=== PATIENT | female | born 1995 | race Caucasian/White ===

== ENCOUNTER 2017-08-11 12:09 | Inpatient (IN) | payer MEDICAID ==
[2017-08-11] MEDS ORDERED: Sodium Chloride 0.9% 10 ML Syringe FLUSH PRN ×2 (12:39→17:10)
[2017-08-11] MEDS ORDERED: Carboprost Tromethamine 250 MCG/1 ML Amp IM PRN (12:39)
[2017-08-11] MEDS ORDERED: Methylergonovine 0.2 MG/1 ML Amp IM PRN (12:39)
[2017-08-11] MEDS ORDERED: Misoprostol 400 MCG (4 X 100 MCG TAB) RECTAL PRN (12:39)
[2017-08-11] MEDS ORDERED: Lactated Ringers 500 ML IV ONE (12:39)
[2017-08-11] MEDS ORDERED: Lidocaine 1% 30 ML SDV INJECT PRN (12:39)
[2017-08-11] MEDS ORDERED: Ondansetron 4 MG/2 ML SDV IV PRN (12:39)
[2017-08-11] MEDS ORDERED: Tranexamic Acid 1,000 MG in Sodium Chloride 0.9% 100 ML IV PRN (12:39)
[2017-08-11] MEDS ORDERED: Oxytocin/Normal Saline 30 UNIT/500 ML BAG IV SCH (14:15)
[2017-08-11] MEDS: Lactated Ringers 1,000 ML IV SCH ×2 (14:37→16:30)
[2017-08-11] MEDS ORDERED: EPINEPHrine 1 MG/ML SDV ONE (15:28)
[2017-08-11] MEDS ORDERED: fentaNYL 100 MCG/2 ML SDV ONE (15:28)
--- NOTE | 2017-08-11 16:07 | PCM.PRNOTE ---
- Free Text/Narrative Note: Requested to provide analgesia to full term patient in severe pain. Upon entering the room, patient is supine in bed complaining of severe abdominal pain and discomfort. Procedure was discussed with patient including adverse outcomes and expectations. Pt consented to analgesia, SAB/IT. Pt placed into a sitting position. Landmarks for SAB/IT were identified and marked. Back was prepped with betadine x3. A sterile, transparent, fenestrated drape was applied. Excess betadine was removed. Using 3 mL of a 1% lidocaine solution, a skin wheel was placed at the L3/L4 interspace. A 24 ga (4 inch) Pencan spinal needle was inserted until positive for CSF. Negative for heme or paresthesias. Injected fentanyl 20 mcg, sufentanil 10 mcg, and 9.75 mg of a 0.75% bupivacaine solution with an epi wash. Pt was placed left lateral position for approximately 20 minutes. There were zero complications or adverse outcomes. Will continue to monitor.
[2017-08-11] MEDS ORDERED: Simethicone 80 MG Tab.Chew PO PRN (17:10)
[2017-08-11] MEDS ORDERED: Zolpidem 5 MG Tab PO PRN (17:10)
[2017-08-11] MEDS ORDERED: Benzocaine/Menthol 20%-0.5% Spray 56 GM Canister TOP PRN (17:10)
[2017-08-11] MEDS ORDERED: Oxytocin 10 Units/1 ML SDV IM PRN (17:10)
[2017-08-11] MEDS: Ibuprofen 800 MG Tab PO PRN (20:05)
[2017-08-11] MEDS: Docusate Sodium 100 MG Cap PO PRN (20:07)
[2017-08-12] MEDS: Ibuprofen 800 MG Tab PO PRN ×3 (05:41→22:11)
[2017-08-12] MEDS: Ferrous Sulfate 325 MG Tab PO SCH (08:53)
[2017-08-12] MEDS: Prenatal Multivitamin with Calcium/Folic Acid/Iron Tab PO SCH (08:53)
[2017-08-12] MEDS: Docusate Sodium 100 MG Cap PO PRN ×2 (08:53→20:02)
--- NOTE | 2017-08-12 10:39 | DEL ---
DATE: 08/11/2017 PREOPERATIVE DIAGNOSES: 1. Intrauterine at 38 and 1/7 weeks by 6 and 1/7 week ultrasound. 2. Premature rupture of membranes. 3. Group B Streptococcus negative. 4. Positive THC on UDS upon admission. 5. 4, para 1-0-2-1. POSTOPERATIVE DIAGNOSES: 1. Intrauterine at 38 and 1/7 weeks by 6 and 1/7 week ultrasound, delivered. 2. Premature rupture of membranes. 3. Group B Streptococcus negative. 4. Positive THC on UDS upon admission. 5. 4, para 1-0-2-1. 6. Nuchal cord x1, reduced bluntly with delivery. 7. KRISTEL presentation with right hand by left cheek. PROCEDURE PERFORMED: NST, Pitocin augmentation, and then subsequent spontaneous vaginal delivery on 08/11/2017. ANESTHESIA/ANALGESIA: The patient did receive an intrathecal in the first stage of labor. ESTIMATED BLOOD LOSS: 200 mL. FINDINGS: Male. scores and weight pending. SUMMARY OF EVENTS: The patient is a 21-year-old, G4, P1-0-2-1, intrauterine at 38 and 1/7 weeks by 6 and 1/7 week ultrasound, who was admitted with premature rupture of membranes, she required Pitocin augmentation, she subsequently continued to progress in terms of her dilation. I was subsequently called to the room as she was feeling an urge to push. I donned sterile gown and gloves. Upon my evaluation, she was found to be complete and started pushing with contractions. On the 2nd contraction and pushing, vertex was delivered in KRISTEL presentation. Nuchal cord x1 was noted and reduced bluntly with delivery. Subsequently, anterior and posterior shoulder delivered with minimal difficulty with right hand by left cheek, rest of the delivered thereafter. Mouth and nares were suctioned. Cord was doubly clamped and cut, and was resuscitated on mother's abdomen. Then, approximately 10 mL of cord blood was obtained for labs. Placenta was then delivered with gentle cord traction and fundal massage within 5 minutes. Perineum, vagina, and perirectal areas were then examined, without any tears or lacerations. Bilateral periurethral abrasions, nonbleeding, non-repaired after discussion with the patient. Mother and are currently stable at the time of dictation. [facility] /[id number]
--- NOTE | 2017-08-12 11:03 | OBOUT ---
DATE: 08/11/2017 DATE AND TIME OF NST: Date: 08/11/2017. Time: 1250 hours to 1310 hours. REASON FOR NST: 1. Intrauterine at 38 and 1/7 weeks by 6 and 1/7 week ultrasound. 2. Premature rupture of membranes. 3. GBS negative. 4. G4, P1-0-2-1. NST INTERPRETATION: During this time period, heart tone baseline is approximately 130 to 135 and there are at least two 15 x 15 beats per minute accelerations, making this strip reactive. It is also noted to be reassuring. Tocometer reveals irritable-type contraction. Blood pressure 151/82, prior to that was 132/82. ASSESSMENT: 1. Nonstress test, reactive and reassuring. 2. Tocometer reveals irritable-type contraction pattern. PLAN: Due to premature rupture of membranes, Pitocin will be started. We will continue to follow clinically and closely. We will follow her blood pressures closely. No signs and symptoms of severe preeclampsia noted at this point in time. The patient understands and agrees with the above treatment plan. For her history and physical, please see Epic notes which will be scanned and updated in the chart with an update director of clinical applications it. [facility] /[id number]
--- NOTE | 2017-08-12 11:09 | PN ---
DATE: 08/12/2017 day #1. SUBJECTIVE: The patient is tolerating p.o., ambulating, urinating, passing flatus. OBJECTIVE: Vital Signs: Last set of vitals of updated and listed in the chart. Temperature 98.5, heart rate 88, blood pressure 119/78, and respiratory rate 16. Lungs: Clear to auscultation bilaterally. Heart: S1, S2. Regular rate and rhythm. Pelvic: Firm uterus around the umbilicus. Extremities: No peripheral edema. No calf pain. LABORATORY DATA: White cell count 14.9, hemoglobin 11, platelets 170. ASSESSMENT AND PLAN: day #1, status post spontaneous vaginal delivery. PLAN: We will continue to follow clinically and closely. Possible discharge tomorrow. Plans were discussed with patient, they understand and agree. [facility] /[id number]
[2017-08-12] MEDS: Acetaminophen 325 MG Tab PO PRN ×2 (12:11→20:02)
[2017-08-13] MEDS: Acetaminophen 325 MG Tab PO PRN (04:53)
[2017-08-13] MEDS: Prenatal Multivitamin with Calcium/Folic Acid/Iron Tab PO SCH (08:06)
[2017-08-13] MEDS: Ibuprofen 800 MG Tab PO PRN (08:06)
[2017-08-13] MEDS: Ferrous Sulfate 325 MG Tab PO SCH (08:06)
[2017-08-13 08:12] VITALS: BP 116/70
[2017-08-13] MEDS ORDERED: fentaNYL 100 MCG/2 ML SDV ITHECAL ONE (10:24)
[2017-08-13] MEDS ORDERED: EPINEPHrine 1 MG/ML SDV ONE (10:24)
--- NOTE | 2017-08-13 11:27 | DISCH ---
DATE OF SERVICE: 08/13/2017 ADMIT DIAGNOSES: 1. Intrauterine 38 and 1/7 weeks by 6 and 1/7 weeks ultrasound. 2. Premature rupture of membranes. 3. Group B streptococcus negative. 4. Positive THC on urine drug screen on 08/11/2017. 5. G4, P1-0-2-1. POSTOPERATIVE DIAGNOSES: 1. Intrauterine 38 and 1/7 weeks by 6 and 1/7 weeks ultrasound, delivered. 2. Premature rupture of membranes. 3. Group B streptococcus negative. 4. Positive THC on urine drug screen on 08/11/2017. 5. G4, P1-0-2-1. 6. KRISTEL right hand by left cheek with delivery. 7. Nuchal cord x1 reduced bluntly at delivery. PROCEDURE PERFORMED: NST, Pitocin augmentation, spontaneous vaginal delivery by Dr. Anthony Luther, on date of admission. HISTORY OF PRESENT ILLNESS: Please see H and P. SUMMARY OF HOSPITAL COURSE: The patient was admitted on the above date with the above diagnoses with premature rupture of membranes. Did require some Pitocin augmentation and subsequently had a spontaneous vaginal delivery yielding a male, scores 8 and 9, weighing 7 pounds 7 ounce (3375 g). day #1, please see progress note. day #2, date of discharge, the patient was tolerating p.o., ambulating, urinating, passing flatus, and requesting discharge. PHYSICAL EXAMINATION: Vital Signs: Last set of vitals updated and listed in the chart. Temperature 99, heart rate 96, blood pressure 116/70, respiratory rate 16. Lungs: Clear to auscultation. Heart: S1 and S2. Regular rate and rhythm. Abdomen: Firm uterus around the umbilicus. Extremities: No peripheral edema. No calf pain. LABORATORY DATA: Labs done on day #1, 08/12/2017, revealed a hemoglobin 11 compared to predelivery hemoglobin 11.9. CONDITION ON ADMISSION COMPARED TO CONDITION ON DISCHARGE: Improved. DISCHARGE INSTRUCTIONS: 1. Diet as tolerated. 2. Activity: No lifting more than 20 pounds, no sit-ups or straining, and pelvic rest for the next 6 weeks with immediate return to fertility were discussed with the patient. 3. Reason to return or go to the emergency room was discussed with the patient in detail to include, but not limited to, temperature greater than 100.4, foul-smelling discharge, red or hot breasts, or increased vaginal bleeding. DISCHARGE MEDICATIONS: 1. [id number] ibuprofen for pain. 2. vitamins x6 weeks. FOLLOWUP: Follow up in 6 weeks visit. I did discuss with the patient in the interim the reason to return to the emergency room in regards to her . She understands and agrees with the above treatment plan, importance of followup and ramifications of not doing so were also discussed. [facility] /[id number]
== END 2017-08-13 10:25 | disposition home or self-care (01) | DRG 775 ==
LOC: DL.OBCHECK 12:09 → DL.OB 12:40 → OBSVTOIN 17:01
PROVIDERS: ADMIT Family Medicine; ATTEND Family Medicine
PROC: 10E0XZZ Delivery of Products of Conception, External Approach (ICD-10-PCS; principal; 2017-08-11)
PROC: 00HU33Z Insertion of Infusion Device into Spinal Canal, Percutaneous Approach (ICD-10-PCS; 2017-08-11)
PROC: 3E0R3BZ Introduction of Anesthetic Agent into Spinal Canal, Percutaneous Approach (ICD-10-PCS; 2017-08-11)
DX: O42.02 Full-term premature rupture of membranes, onset of labor within 24 hours of rupture (principal); O99.324 Drug use complicating childbirth; Z3A.38 38 weeks gestation of pregnancy; Z37.0 Single live birth; O99.334 Smoking (tobacco) complicating childbirth; F12.90 Cannabis use, unspecified, uncomplicated; O69.81X0 Labor and delivery complicated by cord around neck, without compression, not applicable or unspecified
CPT/HCPCS: 01967; 36415; 59409; 80305; 85027; A9270-GY; J0171; J2405; J2590; J3010; J7120

== ENCOUNTER 2019-08-26 02:58 | Emergency (ER) | payer SELFPAY ==
[2019-08-26] MEDS ORDERED: Ondansetron 4 MG Tab.DIS PO ONE (02:59)
[2019-08-26 03:08] VITALS: BP 115/78; PULSE 104
[2019-08-26] MEDS ORDERED: Sodium Chloride 0.9% 1,000 ML IV ONE ×2 (03:13→03:45)
[2019-08-26] MEDS ORDERED: HYDROmorphone 1 MG/ML Syringe IVPUSH ONE (03:22)
[2019-08-26] MEDS ORDERED: Ondansetron 4 MG/2 ML SDV IVPUSH ONE (03:22)
--- NOTE | 2019-08-26 03:23 | EDM.PDOC ---
"ED HPI GENERAL MEDICAL PROBLEM - General Chief Complaint: Abdominal Pain Stated Complaint: BAD STOMACH PAIN Time Seen by Provider: 08/26/19 03:22 Source of Information: Reports: Patient, RN Notes Reviewed History Limitations: Reports: No Limitations - History of Present Illness INITIAL COMMENTS - FREE TEXT/NARRATIVE: ED with c/o severe stomach ache since yesterday, worse tonight, nauseated from pain. Vomiting tonight. Decreased oral intake, Not voiding much today, No burning with urination, some right back pain. LMP current No known fever or chills. 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 Took SSRI [id number]. HX of substance abuse- [facility] [place] 2009 Social & Family History - Family History Family Medical History: Noncontributory - Tobacco Use Smoking Status *Q: Current Every Day Smoker Years of Tobacco use: 10 Packs/Tins Daily: 0.5 - Caffeine Use Caffeine Use: Reports: None - Recreational Drug Use Recreational Drug Use: Yes Recreational Drug Type: Reports: Marijuana/Hashish ED ROS GENERAL - Review of Systems Review Of Systems: Comprehensive ROS is negative, except as noted in HPI. ED EXAM, GI/ABD - Physical Exam Exam: See Below Exam Limited By: No Limitations General Appearance: Alert, Moderate Distress Eyes: Bilateral: EOMI Ears: Normal External Exam Nose: Normal Inspection Throat/Mouth: Other (dry membranes) Head: Atraumatic, Normocephalic Neck: Normal Inspection Respiratory/Chest: No Respiratory Distress, Lungs Clear, Normal Breath Sounds Cardiovascular: Normal Peripheral Pulses, Regular Rate, Rhythm, Tachycardia GI/Abdominal Exam: Soft, Tender (generalized greater RLQ), Abnormal Bowel Sounds (hyperactive). No: Distended, Guarding Back Exam: CVA Tenderness (R) Neurological: Alert, Oriented, Normal Cognition Skin Exam: Warm, Dry, Intact, Pallor Course - Vital Signs Last Recorded V/S: Last Vital Signs Temp 97.3 F 08/26/19 03:03 Pulse 104 H 08/26/19 03:03 Resp 16 08/26/19 03:03 BP 115/78 08/26/19 03:03 Pulse Ox 100 08/26/19 03:03 - Orders/Labs/Meds Orders: Active Orders 24 hr Category Date Time Status Abdomen Pelvis w Cont [CT] Urgent Exams 08/26/19 03:42 Ordered UA RFX KASSY AND CULT IF INDIC [URIN] Urgent Lab 08/26/19 03:05 Ordered Sodium Chloride 0.9% [Normal Saline] 1,000 ml Med 08/26/19 03:13 Active IV .BOLUS Sodium Chloride 0.9% [Normal Saline] 1,000 ml Med 08/26/19 03:45 Ordered IV .BOLUS Medication Orders Sodium Chloride (Normal Saline) 1,000 mls @ 999 mls/hr IV .BOLUS ONE Stop: 08/26/19 04:13 Last Admin: 08/26/19 03:14 Dose: 999 mls/hr Sodium Chloride (Normal Saline) 1,000 mls @ 999 mls/hr IV .BOLUS ONE Stop: 08/26/19 04:45 Labs: Laboratory Tests 08/26/19 08/26/19 08/26/19 Range/Units 03:09 03:09 03:09 WBC 13.7 H (5.0-10.0) 10^3/uL RBC 5.63 H (4.2-5.4) 10^6/uL Hgb 16.7 H D (12.0-16.0) g/dL Hct 50.5 H (37.0-47.0) % MCV 89.7 D (80-100) fL MCH 29.7 (27.0-34.0) pg MCHC 33.1 (33.0-35.0) g/dL Plt Count 271 D (150-450) 10^3/uL Neut % (Auto) 84.6 H (42.2-75.2) % Lymph % (Auto) 8.7 L (20.5-50.1) % [place] % (Auto) 4.7 (2-8) % Eos % (Auto) 1.9 (1.0-3.0) % Baso % (Auto) 0.1 (0.0-1.0) % Sodium 137 (135-145) mmol/L Potassium 3.9 (3.6-5.0) mmol/L Chloride 100 L (101-111) mmol/L Carbon Dioxide 27.0 (21.0-31.0) mmol/L Anion Gap 13.9 BUN 12 (7-18) mg/dL Creatinine 0.5 L (0.6-1.3) mg/dL Est Cr Clr Drug Dosing 137.22 mL/min Estimated GFR (MDRD) > 60 BUN/Creatinine Ratio 24.00 Glucose 115 H (74-105) mg/dL Lactic Acid 1.6 (0.5-2.0) mmol/L Calcium 9.5 (8.4-10.2) mg/dl Total Bilirubin 0.5 (0.2-1.0) mg/dL AST 37 (10-42) IU/L ALT 57 (10-60) IU/L Alkaline Phosphatase 78 (42-121) IU/L Total Protein 7.7 (6.7-8.2) g/dl Albumin 4.5 (3.2-5.5) g/dl Globulin 3.2 Albumin/Globulin Ratio 1.41 HCG, Qual Negative Meds: Medications Generic Name Dose Route Start Last Admin Trade Name Freq PRN Reason Stop Dose Admin Sodium Chloride 1,000 mls @ 999 mls/hr 08/26/19 03:13 08/26/19 03:14 Normal Saline IV 08/26/19 04:13 999 mls/hr .BOLUS ONE Administration Sodium Chloride 1,000 mls @ 999 mls/hr 08/26/19 03:45 Normal Saline IV 08/26/19 04:45 .BOLUS ONE Discontinued Medications Generic Name Dose Route Start Last Admin Trade Name Freq PRN Reason Stop Dose Admin Hydromorphone HCl 1 mg 08/26/19 03:22 08/26/19 03:30 Dilaudid IVPUSH 08/26/19 03:23 1 mg ONETIME ONE Administration Iopamidol 100 ml 08/26/19 03:42 Isovue-300 (61%) IVPUSH 08/26/19 03:43 ONETIME ONE Ondansetron HCl 4 mg 08/26/19 03:22 08/26/19 03:29 Zofran IVPUSH 08/26/19 03:23 4 mg ONETIME ONE Administration - Radiology Interpretation Free Text/Narrative:: [facility] [place] [facility] Final Radiology Report Call: [phone] assistance Online chat: [email or web address] Name: JEN PANDEY Age: 23Years F Date: 08/26/2019 SSN: -- : [id number] Study: CT ABDOMEN/PELVIS W Requesting Physician: DAMRAIS GONZALEZ Images: [id number] Addl Studies: Provided Clinical History: Contrast: With Contrast Medium: Isovue Contrast Amount: 100 mL Contrast Method: LAC Page 1 of 2 PROCEDURE INFORMATION: Exam: CT Abdomen And Pelvis With Contrast Exam date and time: 08/26/2019 4:05 AM Age: 23 years old Clinical indication: Abdominal pain; Patient HX: Abd pain, vomiting, wbc 14,000 TECHNIQUE: Imaging protocol: Computed tomography of the abdomen and pelvis with intravenous contrast. Radiation optimization: All CT scans at this facility use at least one of these dose optimization techniques: automated exposure control; mA and/or kV adjustment per patient size (includes targeted exams where dose is matched to clinical indication); or iterative reconstruction. Contrast material: ISOVUE; Contrast volume: 100 ml; Contrast route: LAC; COMPARISON: No relevant prior studies available. FINDINGS: Liver: Normal. No mass. Gallbladder and bile ducts: Normal. No calcified stones. No ductal dilation. Pancreas: Normal. No ductal dilation. Spleen: Normal. No splenomegaly. Adrenals: Normal. No mass. Kidneys and ureters: Normal. No hydronephrosis. Stomach and bowel: Nondilated fluid-filled small bowel loops. Liquid stool within the colon and rectum. Appendix: Appendix is visualized and is normal. Intraperitoneal space: Unremarkable. No free air. No significant fluid collection. Vasculature: Unremarkable. No abdominal aortic aneurysm. Lymph nodes: Unremarkable. No enlarged lymph nodes. JEN PANDEY | Final Radiology Report CONFIDENTIALITY STATEMENT This report is intended only for use by the referring physician, and only in accordance with law. If you received this in error, call [phone]. Page 2 of 2 Bladder: Unremarkable as visualized. Reproductive: Unremarkable as visualized. Bones/joints: Unremarkable. No acute fracture. Soft tissues: Unremarkable. IMPRESSION: 1. Nondilated fluid-filled small bowel loops. Liquid stool within the colon and rectum. Findings can suggest gastroenteritis/diarrheal disease. 2. No CT findings of acute appendicitis. Thank you for allowing us to participate in the care of your patient. Departure - Departure Time of Disposition: 05:06 Disposition: Home, Self-Care 01 Condition: Good Clinical Impression: Gastroenteritis Abdominal pain Qualifiers: Abdominal location: generalized Qualified Code(s): R10.84 - Generalized abdominal pain - Discharge Information *PRESCRIPTION DRUG MONITORING PROGRAM REVIEWED*: No *COPY OF PRESCRIPTION DRUG MONITORING REPORT IN PATIENT ROSY: No Instructions: Abdominal Pain, Adult, [id number] Forms: ED Department Discharge Additional Instructions: light diet start with few sips liquid, gradual advance as tolerated avoid spicy food, caffeine, until symptoms resolve tylenol every 4 hours as needed follow up if symptoms worsen, fevers, unable to tolerate fluids zofran 4mg ODT one every 4 hours as needed #2 Sepsis Event Note - Evaluation Sepsis Screening Result: No Definite Risk - Focused Exam Vital Signs: Vital Signs Temp Pulse Resp BP Pulse Ox 08/26/19 03:03 97.3 F 104 H 16 115/78 100 Date Exam was Performed: 08/26/19 Time Exam was Performed: 03:58 - My Orders Last 24 Hours: My Active Orders 08/26/19 03:05 UA RFX KASSY AND CULT IF INDIC [URIN] Urgent 08/26/19 03:13 Sodium Chloride 0.9% [Normal Saline] 1,000 ml IV .BOLUS 08/26/19 03:42 Abdomen Pelvis w Cont [CT] Urgent 08/26/19 03:45 Sodium Chloride 0.9% [Normal Saline] 1,000 ml IV .BOLUS - Assessment/Plan Last 24 Hours: My Active Orders 08/26/19 03:05 UA RFX KASSY AND CULT IF INDIC [URIN] Urgent 08/26/19 03:13 Sodium Chloride 0.9% [Normal Saline] 1,000 ml IV .BOLUS 08/26/19 03:42 Abdomen Pelvis w Cont [CT] Urgent 08/26/19 03:45 Sodium Chloride 0.9% [Normal Saline] 1,000 ml IV .BOLUS"
[2019-08-26 03:35] LABS: ANION GAP 13.9; CHLORIDE,CL 100 mmol/L (101-111); SODIUM,NA 137 mmol/L (135-145)
[2019-08-26] MEDS ORDERED: Iopamidol 612 MG/ML 100 ML Bottle IVPUSH ONE (03:42)
[2019-08-26] MEDS ORDERED: Famotidine 20 MG/2 ML SDV IVPUSH ONE (05:03)
[2019-08-26] MEDS ORDERED: Ondansetron 4 MG Tab.DIS ONE (05:05)
== END 2019-08-26 05:16 | disposition home or self-care (01) ==
LOC: DL.ED 02:58
DX: K52.9 Noninfective gastroenteritis and colitis, unspecified (principal); F17.210 Nicotine dependence, cigarettes, uncomplicated
CPT/HCPCS: 36415; 74177; 80053; 80305; 81001; 83605; 84703; 85025; 96361; 96374; 96375; 99284; A9270; J1170; J2405; J3490; J7030; Q9967

== ENCOUNTER 2020-08-11 03:06 | Emergency (ER) | payer MEDICAID ==
[2020-08-11 03:43] LABS: ANION GAP 10.6 mEq/L (7-13); CHLORIDE,CL 103 mmol/L (98-107); SODIUM,NA 141 mmol/L (136-145)
--- NOTE | 2020-08-11 03:46 | EDM.PDOC ---
ED HPI GENERAL MEDICAL PROBLEM - General Chief Complaint: Gastrointestinal Problem Stated Complaint: stomache pain/ulcers Time Seen by Provider: 08/11/20 03:20 Source of Information: Reports: Patient History Limitations: Reports: No Limitations - History of Present Illness INITIAL COMMENTS - FREE TEXT/NARRATIVE: ED with c/o mid abdominal pain since Friday aniceto. Nausea no vomiting. Burping acidtype liquid. Normal BM's, right flank pain intermittent burining with urination. No fever or chills. LMP 3 weeks ago. Denied drug or alchol use. Abdomen Pain Score (Numeric/FACES): 9 - Related Data Allergies Allergy/AdvReac Type Severity Reaction Status Date / Time No Known Allergies Allergy Verified 08/11/20 03:11 Home Meds: Home Meds . 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 Took SSRI [id number]. HX of substance abuse- [facility] 2009 - Past Surgical History HEENT Surgical History: Reports: Oral Surgery Social & Family History - Family History Family Medical History: No Pertinent Family History - Tobacco Use Tobacco Use Status *Q: Current Every Day Tobacco User Years of Tobacco use: 10 Packs/Tins Daily: 0.3 Used Tobacco, but Quit: No Second Hand Smoke Exposure: Yes - Caffeine Use Caffeine Use: Reports: None - Recreational Drug Use Recreational Drug Use: Yes Drug Use in Last 12 Months: Yes Recreational Drug Type: Reports: Marijuana/Hashish Recreational Drug Use Frequency: Daily ED ROS GENERAL - Review of Systems Review Of Systems: Comprehensive ROS is negative, except as noted in HPI. ED EXAM, GI/ABD - Physical Exam Exam: See Below Exam Limited By: No Limitations General Appearance: Alert, Moderate Distress Eyes: Bilateral: EOMI Ears: Normal External Exam Nose: Normal Inspection Throat/Mouth: Normal Inspection Head: Atraumatic, Normocephalic Neck: Normal Inspection Respiratory/Chest: No Respiratory Distress, Lungs Clear Cardiovascular: Normal Peripheral Pulses, Regular Rate, Rhythm GI/Abdominal Exam: Normal Bowel Sounds, Tender (left mid to lower abdomen) Back Exam: Normal Inspection Extremities: Normal Inspection, Normal Range of Motion, No Pedal Edema Neurological: Alert, Oriented Psychiatric: Flat Affect Course - Vital Signs Last Recorded V/S: Last Vital Signs Temp 98.3 F 08/11/20 05:05 Pulse 97 08/11/20 05:05 Resp 16 08/11/20 05:05 BP 97/61 08/11/20 05:05 Pulse Ox 100 08/11/20 05:05 - Orders/Labs/Meds Labs: Laboratory Tests 08/11/20 08/11/20 08/11/20 Range/Units 03:15 03:15 03:15 WBC 8.2 (5.0-10.0) 10^3/uL RBC 4.97 (4.2-5.4) 10^6/uL Hgb 14.4 D (12.0-16.0) g/dL Hct 45.1 (37.0-47.0) % MCV 90.7 (80-100) fL MCH 29.0 (27.0-34.0) pg MCHC 31.9 L (33.0-35.0) g/dL Plt Count 298 (150-450) 10^3/uL Neut % (Auto) 41.7 L (42.2-75.2) % Lymph % (Auto) 42.2 (20.5-50.1) % [place] % (Auto) 9.7 H (2-8) % Eos % (Auto) 6.3 H (1.0-3.0) % Baso % (Auto) 0.1 (0.0-1.0) % Sodium 141 (136-145) mmol/L Potassium 3.6 (3.5-5.1) mmol/L Chloride 103 (98-107) mmol/L Carbon Dioxide 31 (21-32) mmol/L Anion Gap 10.6 (7-13) mEq/L BUN 10 (7-18) mg/dL Creatinine 0.45 L (0.55-1.02) mg/dL Est Cr Clr Drug Dosing 151.15 mL/min Estimated GFR (MDRD) > 60 BUN/Creatinine Ratio 22.2 (No establ ref range) Glucose 89 (74-99) mg/dL Calcium 8.7 (8.5-10.1) mg/dL Total Bilirubin 0.3 (0.2-1.0) mg/dL AST 15 (15-37) U/L ALT 24 (14-59) U/L Alkaline Phosphatase 66 (46-116) U/L Total Protein 7.4 (6.4-8.2) g/dL Albumin 3.9 (3.4-5.0) g/dL Globulin 3.5 Albumin/Globulin Ratio 1.1 Amylase 42 (25-115) U/L HCG, Qual Negative Urine Color (YELLOW) Urine Appearance (CLEAR) Urine pH (5.0-9.0) Ur Specific [place] (1.005-1.030) Urine Protein (NEGATIVE) Urine Glucose (UA) (NEGATIVE) Urine Ketones (NEGATIVE) Urine Occult Blood (NEGATIVE) Urine Nitrite (NEGATIVE) Urine Bilirubin (NEGATIVE) Urine Urobilinogen (0.2-1.0) mg/dL Ur Leukocyte Esterase (NEGATIVE) Urine RBC /HPF Urine WBC (0-5/HPF) /HPF Ur Epithelial Cells (NOT SEEN) /HPF Amorphous Sediment (NOT SEEN) /HPF Urine Bacteria (0-FEW/HPF) /HPF Urine Opiates Screen (NEGATIVE) Ur Oxycodone Screen (NEGATIVE) Urine Methadone Screen (NEGATIVE) Ur Barbiturates Screen (NEGATIVE) U Tricyclic Antidepress (NEGATIVE) Ur Phencyclidine Scrn (NEGATIVE) Ur Amphetamine Screen (NEGATIVE) U Methamphetamines Scrn (NEGATIVE) Urine MDMA Screen (NEGATIVE) U Benzodiazepines Scrn (NEGATIVE) Urine Cocaine Screen (NEGATIVE) U Marijuana (THC) Screen (NEGATIVE) Ethyl Alcohol < 3 (0) mg/dL 08/11/20 08/11/20 Range/Units 03:45 03:45 WBC (5.0-10.0) 10^3/uL RBC (4.2-5.4) 10^6/uL Hgb (12.0-16.0) g/dL Hct (37.0-47.0) % MCV (80-100) fL MCH (27.0-34.0) pg MCHC (33.0-35.0) g/dL Plt Count (150-450) 10^3/uL Neut % (Auto) (42.2-75.2) % Lymph % (Auto) (20.5-50.1) % [place] % (Auto) (2-8) % Eos % (Auto) (1.0-3.0) % Baso % (Auto) (0.0-1.0) % Sodium (136-145) mmol/L Potassium (3.5-5.1) mmol/L Chloride (98-107) mmol/L Carbon Dioxide (21-32) mmol/L Anion Gap (7-13) mEq/L BUN (7-18) mg/dL Creatinine (0.55-1.02) mg/dL Est Cr Clr Drug Dosing mL/min Estimated GFR (MDRD) BUN/Creatinine Ratio (No establ ref range) Glucose (74-99) mg/dL Calcium (8.5-10.1) mg/dL Total Bilirubin (0.2-1.0) mg/dL AST (15-37) U/L ALT (14-59) U/L Alkaline Phosphatase (46-116) U/L Total Protein (6.4-8.2) g/dL Albumin (3.4-5.0) g/dL Globulin Albumin/Globulin Ratio Amylase (25-115) U/L HCG, Qual Urine Color Yellow (YELLOW) Urine Appearance Cloudy (CLEAR) Urine pH 8.5 (5.0-9.0) Ur Specific [place] 1.020 (1.005-1.030) Urine Protein 30 H (NEGATIVE) Urine Glucose (UA) Negative (NEGATIVE) Urine Ketones Negative (NEGATIVE) Urine Occult Blood Large H (NEGATIVE) Urine Nitrite Negative (NEGATIVE) Urine Bilirubin Negative (NEGATIVE) Urine Urobilinogen 0.2 (0.2-1.0) mg/dL Ur Leukocyte Esterase Negative (NEGATIVE) Urine RBC 5-10 H /HPF Urine WBC 0-5 (0-5/HPF) /HPF Ur Epithelial Cells Moderate H (NOT SEEN) /HPF Amorphous Sediment Many H (NOT SEEN) /HPF Urine Bacteria Moderate H (0-FEW/HPF) /HPF Urine Opiates Screen Negative (NEGATIVE) Ur Oxycodone Screen Negative (NEGATIVE) Urine Methadone Screen Negative (NEGATIVE) Ur Barbiturates Screen Negative (NEGATIVE) U Tricyclic Antidepress Negative (NEGATIVE) Ur Phencyclidine Scrn Negative (NEGATIVE) Ur Amphetamine Screen Negative (NEGATIVE) U Methamphetamines Scrn Positive H (NEGATIVE) Urine MDMA Screen Negative (NEGATIVE) U Benzodiazepines Scrn Negative (NEGATIVE) Urine Cocaine Screen Negative (NEGATIVE) U Marijuana (THC) Screen Positive H (NEGATIVE) Ethyl Alcohol (0) mg/dL Meds: Medications Discontinued Medications Generic Name Dose Route Start Last Admin Trade Name Ang PRN Reason Stop Dose Admin Famotidine 20 mg 08/11/20 03:49 08/11/20 04:04 Pepcid IVPUSH 08/11/20 03:50 20 mg ONETIME ONE Administration Hydromorphone HCl 1 mg 08/11/20 03:49 08/11/20 04:01 Dilaudid IVPUSH 08/11/20 03:50 1 mg ONETIME ONE Administration Sodium Chloride 1,000 mls @ 999 mls/hr 08/11/20 03:48 08/11/20 04:00 Normal Saline IV 08/11/20 04:48 999 mls/hr .BOLUS ONE Administration Iopamidol 100 ml 08/11/20 04:17 08/11/20 04:53 Isovue-300 (61%) IVPUSH 08/11/20 04:18 75 ml ONETIME ONE Administration Ondansetron HCl 4 mg 08/11/20 03:49 08/11/20 04:00 Zofran IVPUSH 08/11/20 03:50 4 mg ONETIME ONE Administration Departure - Departure Time of Disposition: 05:35 Disposition: Home, Self-Care 01 Condition: Good Clinical Impression: Left ovarian cyst, Positive urine drug screen, Acid reflux - Discharge Information *PRESCRIPTION DRUG MONITORING PROGRAM REVIEWED*: No *COPY OF PRESCRIPTION DRUG MONITORING REPORT IN PATIENT ROSY: No Instructions: Abdominal Pain, Adult, [id number] Forms: ED Department Discharge Additional Instructions: zofran 4mg ODT one every 4 hours as needed for nausea encourage fluids omeprazole 20mg daily on empty stomach follow up with primary care on Friday light diet, start clear liquid advance as tolerated. Avoid alcohol, tobacco, and spicy foods Sepsis Event Note (ED) - Evaluation Sepsis Screening Result: No Definite Risk - Focused Exam Vital Signs: Vital Signs Temp Pulse Resp BP Pulse Ox 08/11/20 05:05 98.3 F 97 16 97/61 100 08/11/20 03:15 98.7 F 119 H 18 125/88 100
[2020-08-11] MEDS ORDERED: Sodium Chloride 0.9% 1,000 ML IV ONE (03:48)
[2020-08-11] MEDS ORDERED: Famotidine 20 MG/2 ML SDV IVPUSH ONE (03:49)
[2020-08-11] MEDS ORDERED: Ondansetron 4 MG/2 ML SDV IVPUSH ONE (03:49)
[2020-08-11] MEDS ORDERED: HYDROmorphone 1 MG/ML Syringe IVPUSH ONE (03:49)
[2020-08-11 04:02] LABS: AMPHETAMINES,URINE NEGATIVE (NEGATIVE); BARBITURATES,URINE NEGATIVE (NEGATIVE); BENZODIAZEPINE,URINE NEGATIVE (NEGATIVE); MDMA (ECSTASY), URINE NEGATIVE (NEGATIVE); METHADONE,URINE NEGATIVE (NEGATIVE); METHAMPHETAMINES,URINE POSITIVE (NEGATIVE); OPIATES,URINE NEGATIVE (NEGATIVE); OXYCODONE,URINE NEGATIVE (NEGATIVE); PHENCYCLIDINE,URINE NEGATIVE (NEGATIVE); TCA,URINE NEGATIVE (NEGATIVE)
[2020-08-11] MEDS ORDERED: Iopamidol 612 MG/ML 100 ML Bottle IVPUSH ONE (04:17)
[2020-08-11 05:10] VITALS: BP 97/61; PULSE 97
--- NOTE | 2020-08-11 05:30 | CT ---
PROCEDURE INFORMATION: Exam: CT Abdomen And Pelvis With Contrast Exam date and time: 08/11/2020 4:41 AM Age: 24 years old Clinical indication: Abdominal pain; Additional info: Abdominal and right flank pain TECHNIQUE: Imaging protocol: Computed tomography of the abdomen and pelvis with contrast. Radiation optimization: All CT scans at this facility use at least one of these dose optimization techniques: automated exposure control; mA and/or kV adjustment per patient size (includes targeted exams where dose is matched to clinical indication); or iterative reconstruction. Contrast material: ISOVUE 300; Contrast volume: 75 ml; Contrast route: INTRAVENOUS (IV); COMPARISON: CT Abdomen Pelvis w Cont 08/26/2019 4:05 AM FINDINGS: Liver: Normal. No mass. Gallbladder and bile ducts: Normal. No calcified stones. No ductal dilation. Pancreas: Normal. No ductal dilation. Spleen: Normal. No splenomegaly. Adrenal glands: Normal. No mass. Kidneys and ureters: Normal. No hydronephrosis. Stomach and bowel: Unremarkable. No obstruction. No mucosal thickening. Appendix: The appendix is visualized and is normal in configuration. Intraperitoneal space: Unremarkable. No free air. No significant fluid collection. Vasculature: Unremarkable. No abdominal aortic aneurysm. Lymph nodes: Unremarkable. No enlarged lymph nodes. Urinary bladder: Unremarkable as visualized. Reproductive: There is a 2.3 x 3.0 x 2.6 cm hypoattenuation cystic mass seen associated with the left ovary compatible with a benign or functional ovarian cyst. Bones/joints: Unremarkable. No acute fracture. Soft tissues: Unremarkable. IMPRESSION: 1. Probable benign or functional left ovarian cyst measuring up 3 cm. No further workup needed. 2. Normal appendix 3. No evidence for ureteral obstruction
== END 2020-08-11 05:49 | disposition home or self-care (01) ==
LOC: DL.ED 03:06
DX: N83.202 Unspecified ovarian cyst, left side (principal); K21.9 Gastro-esophageal reflux disease without esophagitis; R79.89 Other specified abnormal findings of blood chemistry; Z72.0 Tobacco use
CPT/HCPCS: 36415; 74177; 80053; 80305; 80307; 81001; 82150; 84703; 85025; 96374; 96375; 99284; J1170; J2405; J3490; J7030; Q9967; 99283

== ENCOUNTER 2020-12-05 17:24 | Emergency (ER) | payer MEDICAID ==
[2020-12-05 17:50] VITALS: BP 109/61; PULSE 146
[2020-12-05] MEDS ORDERED: traMADol 50 MG Tab PO ONE (17:56)
[2020-12-05] MEDS ORDERED: Acetaminophen/HYDROcodone 325-10 MG Tab PO ONE (17:57)
--- NOTE | 2020-12-05 17:59 | EDM.PDOC ---
ED HPI GENERAL MEDICAL PROBLEM - General Chief Complaint: General Stated Complaint: LEFT SIDE RIB PAIN, FELL ON SIDE Time Seen by Provider: 12/05/20 17:45 Source of Information: Reports: Patient, RN, RN Notes Reviewed History Limitations: Reports: No Limitations - History of Present Illness INITIAL COMMENTS - FREE TEXT/NARRATIVE: Patient is a 25-year-old female who presents to ER with complaint of left lateral rib., Left shoulder pain, left lateral neck pain. Patient states she fell outside. Very vague about how she fell or what she hit. States she hit an object but unsure of what it was, states it was not the ground. There is some swelling and abrasion to the left lateral rib area. Patient denies hitting her head or getting knocked out. Patient states pain is rated at 8-9/10, worsens with breathing and coughing. Patient states this occurred this afternoon. Onset: Today, Sudden Left Chest Pain Score (Numeric/FACES): 8 - Related Data Allergies Allergy/AdvReac Type Severity Reaction Status Date / Time No Known Allergies Allergy Verified 12/05/20 17:40 Home Meds: Home Meds . 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 Took SSRI [id number]. HX of substance abuse- [facility]idential 2009 Endocrine/Metabolic History: Reports: None Hematologic History: Reports: None Oncologic (Cancer) History: Reports: None Dermatologic History: Reports: None - Past Surgical History HEENT Surgical History: Reports: Oral Surgery Social & Family History - Family History Family Medical History: No Pertinent Family History - Tobacco Use Tobacco Use Status *Q: Current Every Day Tobacco User Years of Tobacco use: 11 Packs/Tins Daily: 0.5 - Caffeine Use Caffeine Use: Reports: None ED ROS GENERAL - Review of Systems Review Of Systems: Comprehensive ROS is negative, except as noted in HPI. ED EXAM, GENERAL - Physical Exam Exam: See Below Exam Limited By: No Limitations General Appearance: Alert, WD/WN, Mild Distress Eye Exam: Right Eye: Normal Inspection, Left Eye: Conjunctival Injection, Bilateral Eye: EOMI Ears: Normal External Exam, Hearing Grossly Normal Nose: Normal Inspection Throat/Mouth: Normal Inspection, Normal Voice, No Airway Compromise Head: Atraumatic, Normocephalic Neck: Normal Inspection, Supple, Non-Tender, Full Range of Motion Respiratory/Chest: No Respiratory Distress, Lungs Clear, Normal Breath Sounds, No Accessory Muscle Use, Other (Tenderness to the left lateral ribs) Cardiovascular: Normal Peripheral Pulses, Regular Rate, Rhythm, No Edema, No Gallop, No JVD, No Murmur, No Rub GI/Abdominal: Normal Bowel Sounds, Soft, Non-Tender (Female) Exam: Deferred Rectal (Female) Exam: Deferred Back Exam: Normal Inspection, Decreased Range of Motion Extremities: Normal Inspection, Normal Range of Motion, Non-Tender, No Pedal Edema, Normal Capillary Refill Neurological: Alert, Oriented, Normal Cognition, Normal Gait, No Motor/Sensory Deficits Psychiatric: Normal Affect, Normal Mood Skin Exam: Warm, Dry, Intact, Normal Color, No Rash, Other (swelling and abrasion to the left lateral rib region) Lymphatic: No Adenopathy Course - Vital Signs Last Recorded V/S: Last Vital Signs Temp 100 F 12/05/20 17:28 Pulse 146 H 12/05/20 17:28 Resp 18 12/05/20 17:28 BP 109/61 12/05/20 17:28 Pulse Ox 100 12/05/20 17:28 - Orders/Labs/Meds Labs: Laboratory Tests 12/05/20 12/05/20 12/05/20 Range/Units 17:36 17:36 17:36 Urine Color Yellow (YELLOW) Urine Appearance Turbid (CLEAR) Urine pH 5.5 (5.0-9.0) Ur Specific [place] >= 1.030 (1.005-1.030) Urine Protein Negative (NEGATIVE) Urine Glucose (UA) Negative (NEGATIVE) Urine Ketones Negative (NEGATIVE) Urine Occult Blood Negative (NEGATIVE) Urine Nitrite Negative (NEGATIVE) Urine Bilirubin Negative (NEGATIVE) Urine Urobilinogen 0.2 (0.2-1.0) mg/dL Ur Leukocyte Esterase Negative (NEGATIVE) Urine HCG, Qual Negative Urine Opiates Screen Negative (NEGATIVE) Ur Oxycodone Screen Negative (NEGATIVE) Urine Methadone Screen Negative (NEGATIVE) Ur Barbiturates Screen Negative (NEGATIVE) U Tricyclic Antidepress Negative (NEGATIVE) Ur Phencyclidine Scrn Negative (NEGATIVE) Ur Amphetamine Screen Negative (NEGATIVE) U Methamphetamines Scrn Negative (NEGATIVE) Urine MDMA Screen Negative (NEGATIVE) U Benzodiazepines Scrn Negative (NEGATIVE) Urine Cocaine Screen Negative (NEGATIVE) U Marijuana (THC) Screen Positive H (NEGATIVE) Meds: Medications Discontinued Medications Generic Name Dose Route Start Last Admin Trade Name Freq PRN Reason Stop Dose Admin Hydrocodone Bitart/Acetaminophen 1 tab 12/05/20 17:57 12/05/20 18:05 Acetaminophen/Hydrocodone 325-10 Mg Tab PO 12/05/20 17:58 1 tab ONETIME ONE Administration Tramadol HCl 50 mg 12/05/20 17:56 Tramadol 50 Mg Tab PO 12/05/20 17:57 ONETIME ONE - Radiology Interpretation Free Text/Narrative:: Left rib xray with chest: PROCEDURE INFORMATION: Exam: XR Left Ribs with PA Chest Exam date and time: 12/05/2020 6:02 PM Age: 25 years old Clinical indication: Injury or trauma; Fall; Rib area, left side; Blunt trauma; Additional info: Fall, pain left side ribs/shoulder/neck TECHNIQUE: Imaging protocol: XR Left ribs with PA chest. Views: 3 views COMPARISON: No relevant prior studies available. FINDINGS: Lungs: Unremarkable. No consolidation. Pleural spaces: Unremarkable. No pleural effusion. No pneumothorax. Heart/Mediastinum: Unremarkable. No cardiomegaly. Bones/joints: Unremarkable. No rib fracture or other fracture seen. IMPRESSION: No acute findings. Thank you for allowing us to participate in the care of your patient. Dictated and Authenticated by: Yovani Henderson MD 12/05/2020 7:16 PM Central Time ([place] & [place]) Left shoulder xray: PROCEDURE INFORMATION: Exam: XR Left Shoulder Exam date and time: 12/05/2020 6:12 PM Age: 25 years old Clinical indication: Pain; Shoulder; Left; Additional info: Fall, pain left side ribs/shoulder/neck TECHNIQUE: Imaging protocol: XR Left shoulder. Views: 2 or more views. COMPARISON: No relevant prior studies available. FINDINGS: Bones/joints: Normal. Soft tissues: Normal. IMPRESSION: No acute findings. Thank you for allowing us to participate in the care of your patient. Dictated and Authenticated by: Leopoldo Hernandez MD 12/05/2020 6:43 PM Central Time ([place] & [place]) Cervical spine xray: PROCEDURE INFORMATION: Exam: XR Cervical Spine Exam date and time: 12/05/2020 6:17 PM Age: 25 years old Clinical indication: Injury or trauma; Fall; Blunt trauma; Additional info: Fall, pain left side ribs/shoulder/neck TECHNIQUE: Imaging protocol: XR of the cervical spine. Views: 2 or 3 views. COMPARISON: MR Cervical Spine Comp wo Cont 08/08/2015 10:02 AM FINDINGS: Bones/joints: Normal. No acute fracture. Normal alignment. Soft tissues: Unremarkable. IMPRESSION: No acute findings. Thank you for allowing us to participate in the care of your patient. Dictated and Authenticated by: Leopoldo Hernandez MD 12/05/2020 6:44 PM Central Time ([place] & [place]) See rad report Departure - Departure Time of Disposition: 19:18 Disposition: Home, Self-Care 01 Condition: Fair Clinical Impression: Neck sprain Qualifiers: Encounter type: initial encounter Qualified Code(s): S13.9XXA - Sprain of joints and ligaments of unspecified parts of neck, initial encounter Contusion of rib on left side Qualifiers: Encounter type: initial encounter Qualified Code(s): S20.212A - Contusion of left front wall of thorax, initial encounter Left shoulder strain Qualifiers: Encounter type: initial encounter Qualified Code(s): S46.912A - Strain of unspecified muscle, fascia and tendon at shoulder and upper arm level, left arm, initial encounter - Discharge Information *PRESCRIPTION DRUG MONITORING PROGRAM REVIEWED*: No *COPY OF PRESCRIPTION DRUG MONITORING REPORT IN PATIENT ROSY: No Instructions: Shoulder Pain, Muscle Strain, [id number], Cervical Sprain, [id number], Rib Contusion Forms: ED Department Discharge Additional Instructions: May use Tylenol and/or Ibuprofen as directed for pain Follow up with your primary care facility if no improvement May use ice to the ribs/shoulder/neck as tolerated Rest Sepsis Event Note (ED) - Evaluation Sepsis Screening Result: No Definite Risk - Focused Exam Vital Signs: Vital Signs Temp Pulse Resp BP Pulse Ox 12/05/20 17:28 100 F 146 H 18 109/61 100
--- NOTE | 2020-12-05 18:43 | CR ---
PROCEDURE INFORMATION: Exam: XR Left Shoulder Exam date and time: 12/05/2020 6:12 PM Age: 25 years old Clinical indication: Pain; Shoulder; Left; Additional info: Fall, pain left side ribs/shoulder/neck TECHNIQUE: Imaging protocol: XR Left shoulder. Views: 2 or more views. COMPARISON: No relevant prior studies available. FINDINGS: Bones/joints: Normal. Soft tissues: Normal. IMPRESSION: No acute findings.
--- NOTE | 2020-12-05 18:44 | CR ---
PROCEDURE INFORMATION: Exam: XR Cervical Spine Exam date and time: 12/05/2020 6:17 PM Age: 25 years old Clinical indication: Injury or trauma; Fall; Blunt trauma; Additional info: Fall, pain left side ribs/shoulder/neck TECHNIQUE: Imaging protocol: XR of the cervical spine. Views: 2 or 3 views. COMPARISON: MR Cervical Spine Comp wo Cont 08/08/2015 10:02 AM FINDINGS: Bones/joints: Normal. No acute fracture. Normal alignment. Soft tissues: Unremarkable. IMPRESSION: No acute findings.
--- NOTE | 2020-12-05 19:16 | CR ---
PROCEDURE INFORMATION: Exam: XR Left Ribs with PA Chest Exam date and time: 12/05/2020 6:02 PM Age: 25 years old Clinical indication: Injury or trauma; Fall; Rib area, left side; Blunt trauma; Additional info: Fall, pain left side ribs/shoulder/neck TECHNIQUE: Imaging protocol: XR Left ribs with PA chest. Views: 3 views COMPARISON: No relevant prior studies available. FINDINGS: Lungs: Unremarkable. No consolidation. Pleural spaces: Unremarkable. No pleural effusion. No pneumothorax. Heart/Mediastinum: Unremarkable. No cardiomegaly. Bones/joints: Unremarkable. No rib fracture or other fracture seen. IMPRESSION: No acute findings.
== END 2020-12-05 19:28 | disposition home or self-care (01) ==
LOC: DL.ED 17:24
DX: S13.4XXA Sprain of ligaments of cervical spine, initial encounter (principal); S46.912A Strain of unspecified muscle, fascia and tendon at shoulder and upper arm level, left arm, initial encounter; S20.212A Contusion of left front wall of thorax, initial encounter; Z72.0 Tobacco use; W18.09XA Striking against other object with subsequent fall, initial encounter
CPT/HCPCS: 71101; 72040; 73030; 80305; 81003; 81025; 99283; A9270

== ENCOUNTER 2022-04-15 16:00 | Emergency (ER) | payer SELFPAY | END 2022-04-15 16:48 | LOC: DL.ED 16:00 | DX: Z53.21 Procedure and treatment not carried out due to patient leaving prior to being seen by health care provider (principal) ==

== ENCOUNTER 2022-08-08 22:05 | Emergency (ER) | payer SELFPAY ==
[2022-08-08 22:17] VITALS: BP 121/76; PULSE 118
== END 2022-08-08 23:40 | disposition home or self-care (01) ==
LOC: DL.ED 22:05
DX: S63.501A Unspecified sprain of right wrist, initial encounter (principal); S60.211A Contusion of right wrist, initial encounter; K21.9 Gastro-esophageal reflux disease without esophagitis; F17.210 Nicotine dependence, cigarettes, uncomplicated; W22.09XA Striking against other stationary object, initial encounter
CPT/HCPCS: 73130-RT; 99282; 99283

== ENCOUNTER 2022-09-29 22:42 | Emergency (ER) | payer MEDICAID ==
[2022-09-29 23:05] VITALS: BP 131/109; PULSE 160
== END 2022-09-30 00:49 | disposition home or self-care (01) ==
LOC: DL.ED 22:42
DX: S50.11XA Contusion of right forearm, initial encounter (principal); F17.210 Nicotine dependence, cigarettes, uncomplicated; W01.0XXA Fall on same level from slipping, tripping and stumbling without subsequent striking against object, initial encounter; Y93.01 Activity, walking, marching and hiking
CPT/HCPCS: 73090-RT; 99282; 99283

== ENCOUNTER 2023-11-07 16:44 | Emergency (ER) | payer MEDICAID, OTHER ==
[2023-11-07] MEDS: Proparacaine 0.5% Ophth Soln 15 ML Bottle EYELF ONE (16:35)
[2023-11-07 17:07] VITALS: BP 111/78; PULSE 96
== END 2023-11-07 16:47 | disposition home or self-care (01) ==
LOC: DL.ED 16:44
DX: H57.12 Ocular pain, left eye (principal)
CPT/HCPCS: 99282; 99283; J3490

== ENCOUNTER 2023-11-08 16:28 | Emergency (ER) | payer MEDICAID, OTHER ==
[2023-11-08 16:46] VITALS: BP 102/79; PULSE 100
== END 2023-11-08 17:28 | disposition home or self-care (01) ==
LOC: DL.ED 16:28
DX: H53.9 Unspecified visual disturbance (principal); F17.210 Nicotine dependence, cigarettes, uncomplicated
CPT/HCPCS: 99282; 99283